=== PATIENT | female | born 1990 | race Asian ===

== ENCOUNTER 2020-07-24 14:37 | Emergency (ER) | payer OTHER ==
[~2020-07-24] VITALS: Ht 160 cm; Wt 55.0 kg
[2020-07-24 14:39] VITALS: BP 131/75
--- NOTE | 2020-07-24 16:54 | REP ---
INDICATION: trauma. COMPARISON: None. TECHNIQUE: Four views FINDINGS: Four views of the mandible demonstrate no evidence of mandibular fracture. Mandibular condyles appear to be intact. No maxillary fracture is appreciated. IMPRESSION: No fracture noted. <Electronically signed by Ham Rivera > 07/24/20 4420
== END 2020-07-24 17:25 | disposition home or self-care (01) ==
LOC: M ED 14:37
DX: S00.83XA Contusion of other part of head, initial encounter (principal); W18.39XA Other fall on same level, initial encounter; Y92.018 Other place in single-family (private) house as the place of occurrence of the external cause

== ENCOUNTER 2022-02-27 21:37 | Emergency (ER) | payer OTHER ==
[~2022-02-27] VITALS: Ht 157.5 cm; Wt 50.1 kg
[2022-02-27 21:39] VITALS: BP 127/65
== END 2022-02-28 00:20 | disposition left against medical advice (07) ==
LOC: M ED 21:37
DX: Z53.21 Procedure and treatment not carried out due to patient leaving prior to being seen by health care provider (principal)